=== PATIENT | male | born 1955 | race African-American/Black ===

== ENCOUNTER 2017-01-15 13:31 | Outpatient (CLI) | payer OTHER ==
--- NOTE | 2017-01-15 15:29 | RAD ---
TWO VIEWS RIGHT ELBOW: History: Pain since August. Comparison: None. FINDINGS: No joint effusion. No fracture. No malalignment. Mild degenerative change. IMPRESSION: Mild degenerative change. POS: VEE
== END 2017-01-15 13:32 | disposition home or self-care (01) ==
LOC: MADRAD 13:31
PROVIDERS: ATTEND Orthopaedic Surgery
DX: M25.521 Pain in right elbow (principal)